=== PATIENT | female | born 1985 | race Caucasian/White ===

== ENCOUNTER 2016-08-02 19:32 | Emergency (ER) | payer OTHER ==
[~2016-08-02 19:32] MED LIST: DEXILANT PO; DULOXETINE PO; FIORICET 50-301 EAC1 PO; LEVSIN0.125 M1 PO; NEXIUM 24HR20 M2 PO; OPANA ER PO; OPANA PO; TOPAMAX50 M3 PO; TYLENOL WITH C1 EACH PO; ZOFRAN4 M2 PO
[2016-08-02] MEDS ORDERED: ATIVAN1 M2 PO (19:43)
[2016-08-02] MEDS ORDERED: HYSINGLA ER40 MG PO (19:43)
[2016-08-02] MEDS ORDERED: VYVANSE40 M1 PO (19:44)
[2016-08-02] MEDS ORDERED: CYMBALTA60 M1 PO (19:44)
[2016-08-02] MEDS ORDERED: ZOFRAN4 M2 PO (19:44)
[2016-08-02] MEDS ORDERED: PROMETHAZINE PO (19:45)
[2016-08-02 20:21] LABS: BASO % 0.7 % (0-2); BASO ABSOLUTE COUNT 0.1 tho/cmm (0.0-0.2); EOS % 1.4 % (0-7); EOSINOPHIL ABSOLUTE COUNT 0.1 tho/cmm (0.0-0.7); HCT-HEMATOCRIT 38.1 % (34.0-49.0); HGB-HEMOGLOBIN 13.1 gm/dl (12.0-15.5); IMMATURE GRANULOCYTES ABSOLUTE 0.02 tho/cmm (0-0.03); IMMATURE GRANULOCYTES PERCENT 0.2 % (0-0.3); LYMPH % 46.5 % (20-45); LYMPH ABSOLUTE COUNT 4.3 tho/cmm (0.8-4.5); MCH (MEAN CORPUSCULAR HGB) 33.6 pg (28.0-32.0); MCHC MEAN CORPUSCULAR HGB CONC 34.4 % (32.0-36.0); MCV (MEAN CELL VOLUME) 97.7 fl (82.0-96.0); MEAN PLATELET VOLUME 9.9 cmc (9.4-12.4); MONO % 9.9 % (0-12); MONOCYTE ABSOLUTE COUNT 0.9 tho/cmm (0.0-1.2); NEUTROPHIL ABSOLUTE COUNT 3.8 tho/cmm (1.6-8.0); NEUTROPHIL-AUTOMATED 3.8 tho/cmm (1.6-8.0); NEUTROPHILS % 41.3 % (40-80); PLATELET COUNT 376 tho/cmm (150-450); RED CELL DISTRIBUTION WIDTH 12.2 % (12.4-16.4); WHITE BLOOD COUNT 9.2 tho/cmm (4.0-10.0)
[2016-08-02 20:37] LABS: ANION GAP 12 mmol/L (0-20); BLOOD UREA NITROGEN 13 mg/dl (6-24); CALCIUM 8.9 mg/dl (8.5-10.5); CARBON DIOXIDE-VENOUS 26 mmol/L (22-32); CHLORIDE 105 mmol/l (96-110); CREATININE 0.67 mg/dl (0.50-1.10); GLUCOSE 104 mg/dL (70-110); POTASSIUM 3.8 mmol/L (3.7-5.1); SODIUM 139 mmol/L (135-145); eGFR VALUE FOR BLACK >90 mL/Min
== END 2016-08-02 21:28 ==
LOC: EDMED 19:32
PROVIDERS: Emergency Medicine
DX: R07.89 Other chest pain (principal); R00.2 Palpitations; K21.9 Gastro-esophageal reflux disease without esophagitis; F17.210 Nicotine dependence, cigarettes, uncomplicated